=== PATIENT | female | born 1990 | race Caucasian/White ===

== ENCOUNTER 2017-02-17 22:05 | Emergency (ER) | payer SELFPAY ==
[~2017-02-17] VITALS: Ht 154.9 cm; Wt 43.1 kg
[2017-02-17] MEDS ORDERED: KETOROLAC TROMETHAMINE 15 MG INJ IVP ONE (22:30)
[2017-02-17] MEDS ORDERED: LIDOCAINE HCL 2% 20 ML VIAL TP ONE (22:30)
[2017-02-17] MEDS ORDERED: LET TOPICAL SOLUTION 8 ML UDC TP ONE (22:30)
[2017-02-17] MEDS ORDERED: SODIUM BICARBONATE 4.2 % (NEUT) 5 ML VIAL TP ONE (22:30)
[2017-02-17] MEDS ORDERED: VANCOMYCIN IV 1,000 MG in IV DEXTROSE 5% 250 ML IV ONE (22:30)
[2017-02-17] MEDS ORDERED: LET TOPICAL SOLUTION 8 ML UDC ONE (22:36)
[2017-02-17] MEDS ORDERED: SODIUM BICARBONATE 4.2 % (NEUT) 5 ML VIAL ONE (22:36)
[2017-02-17] MEDS ORDERED: KETOROLAC TROMETHAMINE 15 MG INJ ONE (22:36)
[2017-02-17] MEDS ORDERED: VANCOMYCIN IV 200 ML ONE (22:37)
[2017-02-17] MEDS ORDERED: LIDOCAINE HCL 2% 20 ML VIAL ONE (22:37)
--- NOTE | 2017-02-17 23:00 | NUR ---
PT REFUSED TO COOPERATE WITH US TECH TO PROPERLY PROFORM US. US AND STAFF NURSE EXPLAINED THE PURPOSE OF TEST
--- NOTE | 2017-02-17 23:25 | NUR ---
industrial technologist reports that pt is refusing to continue to proceed with doppler scan of legs, only below knee completed...
[2017-02-18] MEDS ORDERED: NEOMY/BACITRA/POLYMYXIN B OINT UD PACKET TP ONE ×2 (00:30→00:38)
--- NOTE | 2017-02-18 01:45 | NUR ---
PT SLEEPING WITH NO DISTRESS NOTED
--- NOTE | 2017-02-18 06:14 | NUR ---
Patient discharged to home in stable conditon. Written and verbal after care instructions given. Patient verbalizes understanding of instructions. Pt walked out of ER unassisted with belongings at side...
[2017-02-18 06:20] VITALS: BP 123/98
== END 2017-02-18 06:21 | disposition home or self-care (01) ==
LOC: ER 22:08
DX: L03.115 Cellulitis of right lower limb (principal); L02.415 Cutaneous abscess of right lower limb; F11.10 Opioid abuse, uncomplicated; F19.10 Other psychoactive substance abuse, uncomplicated; F12.10 Cannabis abuse, uncomplicated
CPT/HCPCS: 73610; 93971; 96365; 96366; 96375; 99285; A4663; J1885; J3370; J3490 ×2